=== PATIENT | female | born 1945 | race Caucasian/White ===

== ENCOUNTER 2022-03-02 12:38 | Emergency (ER) | payer MEDICARE, OTHER ==
[2022-03-02 12:51] VITALS: BP 149/69
--- NOTE | 2022-03-02 14:00 | XRAY Report ---
PROCEDURE: Chest 1 View X-Ray INDICATIONS: cough with wheezing. TECHNIQUE: One view of the chest was acquired. COMPARISON: None. FINDINGS: Surgical changes and devices: None. Lungs and pleura: No pleural effusions or pneumothorax. Lungs are clear. Mediastinum: Mediastinal contours appear normal. Heart size is normal. Bones and chest wall: No suspicious bony lesions. Overlying soft tissues appear unremarkable. IMPRESSION: No acute process. Reviewed by: Ariadna Soni MD on 03/02/2022 1:59 PM [facility] Approved by: Ariadna Soni MD on 03/02/2022 1:59 PM [facility] Station ID: [id number]
== END 2022-03-02 16:53 | disposition left against medical advice (07) ==
LOC: ED 12:38
DX: Z53.29 Procedure and treatment not carried out because of patient's decision for other reasons (principal)

== ENCOUNTER 2023-12-17 14:54 | Outpatient (CLI) | payer MEDICARE, OTHER | END 2023-12-17 14:55 | disposition home or self-care (01) | LOC: LAB.S 14:54 | PROVIDERS: ATTEND Physician Assistant Medical | DX: R10.9 Unspecified abdominal pain (principal) | CPT/HCPCS: 87086 ==